=== PATIENT | female | born 1950 | race Two or more races ===

== ENCOUNTER 2021-03-28 09:41 | Inpatient (IN) ==
--- NOTE | 2021-03-28 10:32 | XRay Report ---
XR chest 1V portable HISTORY: Shortness of breath. COMPARISON: None. FINDINGS: No pneumothorax. No pleural effusions. The cardiac silhouette is mildly enlarged. There is diffuse interstitial thickening. No focal lung consolidations. There is a small to moderate hiatus he rnia. IMPRESSION: Cardiomegaly with diffuse interstitial thickening. This could be chronic or represent mild congestive change. ACT 112: Negative or not required by law. Electronically signed by: Hong Mo M.D. 03/28/2021 10:31 AM
[2021-03-28 10:34] LABS: Influenza A virus by PCR Negative (Negative); Influenza B virus by PCR Negative (Negative)
[2021-03-28] MEDS ORDERED: dexAMETHasone**PF** 10 MG/ML VIAL IV ONE (10:54)
[2021-03-28] MEDS ORDERED: ALBUT/IPRATROP 3MG/0.5MG NEB 3 ML VIAL NEB ONE (10:54)
--- NOTE | 2021-03-28 11:05 | Emergency Department Note ---
History of Present Illness General Chief complaint: Shortness of Breath/Dyspnea Stated complaint: SOB,COUGH,FEVER Time Seen by Provider: 03/28/21 10:26 History of Present Illness Patient is a 70-year-old female with past medical history significant for asthma, coronary artery disease status post angioplasty, history of CHF, atrial fibrillation chronically anticoagulated on Eliquis, GERD, anxiety, depr ession, dyslipidemia, May Thurner syndrome, among many other chronic medical problems who presents emergency department accompanied by her daughter for evaluation of shortness of breath x3 days. Patient speaks only Polish, her daughter, Lily, is her nick setter, and is acting as an swimming pool maintenance supervisor for her. They declined formal interpretation services. Patient began to feel ill on Sunday 3 days ago, with a cough, chest congestion and a headache. She was not running any fevers. They tried using multiple [id number] medications including Robitussin, Vicks, homeopathic remedies including teas and herbals, Tylenol, and began performing albuterol nebulizer treatments every 4 hours, but symptoms fail to improve. Daughter notes that overnight the patient was sitting upright in the recliner, and could not sleep due to her shortness of breath. She is fully vaccinated against Covid with 2 shots, and did receive a flu shot this year and a pneumonia vaccine. In triage, the patient was noted to be hypoxic with an O2 sat of 87% on room air, she was placed on 2 L by nasal cannula is now in 94-95%. She does not normally require oxygen at home. The patient complains mostly of shortness of breath and chest congestion. She has a cough that is productive of clear/white sputum. No chest pain. No abdominal pain, nausea, vomiting, diarrhea or urinary symptoms. Home Medications Medication Instructions Recorded Confirmed Type acetaminophen 325 mg capsule 325 mg PO Q6H PRN 04/15/19 03/28/21 History albuterol sulfate 2 mg/5 mL oral 2 mg PO TID 04/15/19 03/28/21 History syrup apixaban 5 mg tablet (Eliquis) 5 mg PO BID 04/15/19 03/28/21 History diphenhydramine HCl 25 mg capsule 25 mg PO Q6H PRN 04/15/19 03/28/21 History (Benadryl) furosemide 40 mg tablet (Lasix) 40 mg PO BID tab 12/10/19 11/22/21 History omeprazole 40 mg capsule,delayed 40 mg PO DAILY 04/15/19 03/28/21 History release sennosides 8.6 mg tablet 8.6 mg PO DAILY PRN tab 04/15/19 03/28/21 History spironolactone 25 mg tablet 25 mg PO DAILY 04/15/19 03/28/21 History (Aldactone) trazodone 50 mg tablet 100 mg PO DAILY 04/15/19 03/28/21 History diltiazem HCl 180 mg 180 mg PO DAILY 03/28/21 03/28/21 History capsule,extended release 24 hr escitalopram oxalate 10 mg tablet 10 mg PO DAILY 03/28/21 03/28/21 History fluticasone propionate 50 2 spray INTRANASAL DAILY 03/28/21 03/28/21 History mcg/actuation nasal spray,suspension linagliptin 5 mg tablet 5 mg PO DAILY 03/28/21 03/28/21 History metformin 500 mg tablet,extended 500 mg PO DAILY 03/28/21 03/28/21 History release 24 hr oxybutynin chloride 10 mg 10 mg PO DAILY 03/28/21 03/28/21 History tablet,extended release 24 hr Allergies Allergy/AdvReac Type Severity Reaction Status Date / Time aspirin Allergy Mild Verified 05/29/19 11:26 Iodinated Contrast Media AdvReac Unknown hive Verified 05/29/19 11:26 Torvastatin Allergy Mild Uncoded 05/29/19 11:26 [id number] Allergy Unknown Uncoded 05/29/19 11:26 Past Med/Surg History Medical History Chronic a-fib Chronic venous insufficiency of lower extremity Depression GERD (gastroesophageal reflux disease) H/O colon disorder H/O malignant neoplasm of colon Heart failure HTN, goal to be determined Hyperlipemia May-Thurner syndrome Obesity Persistent asthma Venous stasis dermatitis Venous stasis ulcer Surgical History H/O angioplasty H/O hernia repair H/O: hysterectomy Social History Smoking Status: Never smoker Hx Alcohol Use: No Hx Substance Use: Yes (CBD oil) Preferred Language: Czech Visual Impairment: No Limitations Hearing Ability: Normal Beliefs That Will Affect Care: None marital status: Single Current Living Situation: Family Feels Safe at Home: Yes Review of Systems A total of 10 systems reviewed and were otherwise negative Physical Exam Vital Signs Vital Signs - 24 hr 03/28/21 09:47 03/28/21 09:56 03/28/21 11:00 Temperature 37.2 C Temperature Source Temporal Artery Scan Pulse Rate 88 71 Pulse Rate [Apical] Pulse Rate from SpO2 Sensor 74 Pulse Rhythm Regular Respiratory Rate 22 22 Respiratory Effort / Characteristics Non-Labored Spontaneous Respiratory Depth Normal Respiratory Pattern Regular Blood Pressure 134/65 Blood Pressure [Right Arm] Blood Pressure Mean 88 Blood Pressure Mean [Right Arm] Pulse Oximetry 87 L 94 96 Oxygen Delivery Method Room Air Nasal Cannula Oxygen Flow Rate 2 Sepsis Recent Fever Within 48 Hours Yes Sepsis New/Unexplained Change in Mental Status No Sepsis Action Taken by Nursing No Action Required Pulse Oximetry Post Tiitration 03/28/21 11:30 03/28/21 11:51 03/28/21 12:00 Temperature Temperature Source Pulse Rate 65 70 Pulse Rate [Apical] 66 Pulse Rate from SpO2 Sensor 67 70 Pulse Rhythm Respiratory Rate 27 H 24 26 H Respiratory Effort / Characteristics Spontaneous Respiratory Depth Respiratory Pattern Blood Pressure Blood Pressure [Right Arm] Blood Pressure Mean Blood Pressure Mean [Right Arm] Pulse Oximetry 95 94 97 Oxygen Delivery Method Nasal Cannula Oxygen Flow Rate 2 Sepsis Recent Fever Within 48 Hours Sepsis New/Unexplained Change in Mental Status Sepsis Action Taken by Nursing Pulse Oximetry Post Tiitration 03/28/21 12:03 03/28/21 12:30 03/28/21 13:00 Temperature Temperature Source Pulse Rate 75 107 H Pulse Rate [Apical] 67 Pulse Rate from SpO2 Sensor 75 106 H Pulse Rhythm Respiratory Rate 27 H 32 H 28 H Respiratory Effort / Characteristics Respiratory Depth Respiratory Pattern Blood Pressure 140/70 151/67 H Blood Pressure [Right Arm] 153/75 H Blood Pressure Mean 93 95 Blood Pressure Mean [Right Arm] 101 Pulse Oximetry 96 95 94 Oxygen Delivery Method Nebulizer Nasal Cannula Oxygen Flow Rate 2 Sepsis Recent Fever Within 48 Hours Sepsis New/Unexplained Change in Mental Status Sepsis Action Taken by Nursing Pulse Oximetry Post Tiitration 2 L 03/28/21 13:30 03/28/21 14:00 03/28/21 14:30 Temperature Temperature Source Pulse Rate 85 81 82 Pulse Rate [Apical] Pulse Rate from SpO2 Sensor 88 85 81 Pulse Rhythm Respiratory Rate 25 H 23 26 H Respiratory Effort / Characteristics Respiratory Depth Respiratory Pattern Blood Pressure 133/83 147/85 H 117/62 Blood Pressure [Right Arm] Blood Pressure Mean 99 105 80 Blood Pressure Mean [Right Arm] Pulse Oximetry 93 95 94 Oxygen Delivery Method Nasal Cannula Nasal Cannula Nasal Cannula Oxygen Flow Rate 2 2 2 Sepsis Recent Fever Within 48 Hours Sepsis New/Unexplained Change in Mental Status Sepsis Action Taken by Nursing Pulse Oximetry Post Tiitration 03/28/21 14:48 Temperature Temperature Source Pulse Rate Pulse Rate [Apical] Pulse Rate from SpO2 Sensor Pulse Rhythm Respiratory Rate Respiratory Effort / Characteristics Respiratory Depth Respiratory Pattern Blood Pressure Blood Pressure [Right Arm] Blood Pressure Mean Blood Pressure Mean [Right Arm] Pulse Oximetry Oxygen Delivery Method Nasal Cannula Oxygen Flow Rate 2 Sepsis Recent Fever Within 48 Hours Sepsis New/Unexplained Change in Mental Status Sepsis Action Taken by Nursing Pulse Oximetry Post Tiitration CONSTITUTIONAL: Patient is a 70-year-old female who is awake and alert and lying semiupright on the gurney. She is on nasal cannula oxygen. EYES: Pupils equal, round, reactive to light and accommodation. EOMs intact without nystagmus. Sclera are anicteric. ENT: Tympanic membranes intact, with normal landmarks. External canals are clear. Oral and nasopharynx are clear. Mucous membranes are moist, no lesions, tongue and gums appear normal. CARDIOVASCULAR: Irregular rate and rhythm, no murmur appreciated. Peripheral pulses easy to palpable. Chronic venous stasis changes noted in the bilateral lower extremities, right markedly worse than left. Shallow ulceration noted over the medial right ankle, no overt signs of infection. RESPIRATORY: Breath sounds are harsh and diminished to auscultation throughout with wheezes and rhonchi noted with inspiration and expiration. GI: Bowel sounds are present. Abdomen is soft, nontender, nondistended. No organomegaly. No pulsatile masses. No guarding or rebound. MUSCULOSKELETAL: Full range of motion of extremities x 4 with good strength. No deformity. INTEGUMENTARY: No lesions or rash, normal skin turgor. NEUROLOGICAL: Alert, oriented, and cooperative. Cranial nerves, sensation and strength grossly intact. LYMPH: No lymphadenopathy. Course Course The patient was seen and assessed as above. Old records were reviewed. She presents the emergency department for evaluation of a few days of mild URI symptoms with increasing shortness of breath. She was noted to be hypoxic upon presentation in triage, oxygen saturation was 87% on room air. IV lock was initiated and laboratory studies were collected. She was placed on a panel monitor and EKG was performed. Laboratory studies were collected including CBC with differential, CMP, magnesium, coags, troponin, and BNP. Blood cultures x2 were collected. Influenza and COVID-19 swabs were obtained. She was placed on supplemental oxygen and responded well to this, sats were 94-95% on 2 L by nasal cannula. She was treated with a hour-long DuoNeb, and Decadron 10 mg IV. Patient history and presentation were reviewed with Dr. Pena who agreed with the ED work-up. Chest x-ray was obtained, noting cardiomegaly with diffuse interstitial thickening, no focal lung consolidations. Thickening felt to be international representative of mild congestive change. Swabs for influenza and Covid are negative. Laboratory studies note a normal white count at 7400. H&H 12.7 and 39.8, no left shift, no bandemia. Coags are within normal limits. No electrolyte abnormalities noted. BUN 12, creatinine 0.70. Transaminases are not elevated. BNP is within normal limits for age at 536. Troponin is negative x1. EKG notes a rate controlled A. fib at 68 bpm without acute ischemic changes. Patient was reassessed frequently. Patient and her daughter were updated as test results came back. She was reexamined partway through the nebulizer treatment, when she slipped directly reported that her breathing felt improved, chest exam however did not reveal any significant improvement in breath sounds. ED work-up was reviewed with Dr. Pena. Given her presentation I felt that admission/observation was appropriate. [facility] [place] [facility]. She will be add noted please refer to admission H&P and orders for further information. Cardiac monitoring: An order was placed for continuous cardiac monitoring. The monitor shows a rate controlled atrial fibrillation between 88 and 65 bpm. Administered Medications Discontinued Medications Albuterol (Albut/Ipratrop 3mg/0.5mg Neb 3 Ml Vial) 12 ml NEB ONE ONE Stop: 03/28/21 10:55 Last Admin: 03/28/21 11:48 Dose: 12 ml Documented by: [id number] Dexamethasone Sodium Phosphate (DexamethasonePf 10 Mg/Ml Vial) 10 mg IV NOW ONE Stop: 03/28/21 10:55 Last Admin: 03/28/21 12:14 Dose: 10 mg Documented by: [id number] Medical Decision Making Differential Diagnosis Differential diagnoses entertained included asthma/COPD exacerbation, URI, bronchitis, pneumonia, pneumothorax, CHF exacerbation, cardiac pathology, pulmonary embolism, among others. Medical Records Attestation: I reviewed the patient's medical records. Home Medications Current Medication List: was personally reviewed by me Laboratory Data Attestation: I reviewed the patient's lab results. Result diagrams: 03/28/21 09:51 03/28/21 09:51 Lab Results 03/28/21 03/28/21 03/28/21 Range/Units 09:51 09:51 09:51 WBC 7.40 (4.8-10.8) K/uL RBC 4.04 L (4.2-5.4) M/uL Hgb 12.7 (12.0-16.0) g/dL Hct 39.8 (37-47) % MCV 98.5 (80-100) fL MCH 31.4 (25-34) pg MCHC 31.9 L (32-36) g/dL RDW Std Deviation 52.8 H (36.4-46.3) fL RDW Coeff of Bernardo 14.6 H (11.5-14.5) % Plt Count 124 L (130-400) K/uL MPV 10.7 H (7.4-10.4) fL Immature Gran % (Auto) 0.1 % Neut % (Auto) 71.3 % Lymph % (Auto) 15.3 % Custer % (Auto) 10.8 % Eos % (Auto) 2.4 % Baso % (Auto) 0.1 % Neut # (Auto) 5.27 (1.4-6.5) K/uL Lymph # (Auto) 1.13 L (1.2-3.4) K/uL Custer # (Auto) 0.80 H (0.11-0.59) K/uL Eos # (Auto) 0.18 (0-0.5) K/uL Baso # (Auto) 0.01 (0-0.2) K/uL Immature Gran # (Auto) 0.01 (0.00-0.02) K/uL PT 10.3 (9.0-12.0) Seconds INR 1.0 (0.9-1.1) APTT 26.5 (21.0-31.0) Seconds PTT Ratio 1.0 Sodium 135 L (136-145) mmol/L Potassium 4.3 (3.5-5.1) mmol/L Chloride 98 (98-107) mmol/L Carbon Dioxide 30 (21-32) mmol/L Anion Gap 7.0 (3-11) BUN 12 (7-18) mg/dl Creatinine 0.70 (0.6-1.2) mg/dl Est Cr Clr Drug Dosing Not Reportable Est GFR ( Amer) 100.3 ml/min Est GFR (Non-Af Amer) 86.6 ml/min BUN/Creatinine Ratio 16.7 (10-20) Glucose 138 H (70-99) mg/dl Calcium 8.3 L (8.5-10.1) mg/dl Magnesium 2.6 H (1.8-2.4) mg/dl Total Bilirubin 0.4 (0.2-1) mg/dl AST 19 (15-37) U/L ALT 19 (12-78) U/L Alkaline Phosphatase 104 (45-117) U/L Troponin I < 0.015 (0-0.045) ng/ml NT-Pro-B Natriuret Pep (0-900) pg/ml Total Protein 8.6 H (6.4-8.2) gm/dl Albumin 3.2 L (3.4-5.0) gm/dl Globulin 5.4 H (2.5-4.0) gm/dl Albumin/Globulin Ratio 0.6 L (0.9-2) SARS-CoV-2 (PCR) (Negative) Influ A Molecular Assay (Negative) Influ B Molecular Assay (Negative) 03/28/21 03/28/21 03/28/21 Range/Units 09:51 09:54 09:54 WBC (4.8-10.8) K/uL RBC (4.2-5.4) M/uL Hgb (12.0-16.0) g/dL Hct (37-47) % MCV (80-100) fL MCH (25-34) pg MCHC (32-36) g/dL RDW Std Deviation (36.4-46.3) fL RDW Coeff of Bernardo (11.5-14.5) % Plt Count (130-400) K/uL MPV (7.4-10.4) fL Immature Gran % (Auto) % Neut % (Auto) % Lymph % (Auto) % Custer % (Auto) % Eos % (Auto) % Baso % (Auto) % Neut # (Auto) (1.4-6.5) K/uL Lymph # (Auto) (1.2-3.4) K/uL Custer # (Auto) (0.11-0.59) K/uL Eos # (Auto) (0-0.5) K/uL Baso # (Auto) (0-0.2) K/uL Immature Gran # (Auto) (0.00-0.02) K/uL PT (9.0-12.0) Seconds INR (0.9-1.1) APTT (21.0-31.0) Seconds PTT Ratio Sodium (136-145) mmol/L Potassium (3.5-5.1) mmol/L Chloride (98-107) mmol/L Carbon Dioxide (21-32) mmol/L Anion Gap (3-11) BUN (7-18) mg/dl Creatinine (0.6-1.2) mg/dl Est Cr Clr Drug Dosing Est GFR ( Amer) ml/min Est GFR (Non-Af Amer) ml/min BUN/Creatinine Ratio (10-20) Glucose (70-99) mg/dl Calcium (8.5-10.1) mg/dl Magnesium (1.8-2.4) mg/dl Total Bilirubin (0.2-1) mg/dl AST (15-37) U/L ALT (12-78) U/L Alkaline Phosphatase (45-117) U/L Troponin I (0-0.045) ng/ml NT-Pro-B Natriuret Pep 536 (0-900) pg/ml Total Protein (6.4-8.2) gm/dl Albumin (3.4-5.0) gm/dl Globulin (2.5-4.0) gm/dl Albumin/Globulin Ratio (0.9-2) SARS-CoV-2 (PCR) NEGATIVE (Negative) Influ A Molecular Assay Negative (Negative) Influ B Molecular Assay Negative (Negative) Imaging Data Attestation: I personally reviewed and interpreted this imaging study as follows: Radiologist's Impression: Chest X-Ray 03/28/21 09:51 XR chest 1V portable HISTORY: Shortness of breath. COMPARISON: None. FINDINGS: No pneumothorax. No pleural effusions. The cardiac silhouette is mi ldly enlarged. There is diffuse interstitial thickening. No focal lung consolidations. There is a small to moderate hiatus hernia. IMPRESSION: Cardiomegaly with diffuse interstitial thickening. This could be chronic or represent mild congestive change. ACT 112: Negative or not required by law. Electronically signed by: Hong Mo M.D. 03/28/2021 10:31 AM ECG Data Attestation: I personally reviewed and interpreted this ECG as follows: Indication: + SOB/dyspnea Rate (beats per minute): 68 Rhythm: + atrial fibrillation ECG Intervals/blocks: + Right Bundle branch block ECG Cosmos: + Normal ECG ST segments: + Normal ST segments Comparison ECG Date: no prior available MDM Narrative See ED Course. Impression & Plan Asthma exacerbation, Hypoxia Discharge Plan Visit Data Chief Complaint: Shortness of Breath/Dyspnea Stated Complaint: SOB,COUGH,FEVER ED Provider: Darius Pena ED Midlevel Provider: Yuly Maki Discharge Problem: Asthma exacerbation, Hypoxia Patient Disposition: Admitted As Inpatient Discharge Instructions Interventions: ED Discharge Assessment Last Done: 03/28/21 14:48 Forms Stand Alone Forms: My [facility] Prescriptions Prescriptions: No Action acetaminophen 325 mg capsule 325 mg PO Q6H PRN (Reason: Pain) RF: 0 albuterol sulfate 2 mg/5 mL syrup 2 mg PO TID RF: 0 diphenhydramine HCl [Benadryl] 25 mg capsule 25 mg PO Q6H PRN (Reason: Itching) RF: 0 Eliquis 5 mg tablet 5 mg PO BID RF: 0 furosemide [Lasix] 40 mg tablet 40 mg PO BID RF: 0 omeprazole 40 mg capsule,delayed release(DR/EC) 40 mg PO DAILY RF: 0 sennosides 8.6 mg tablet 8.6 mg PO DAILY PRN (Reason: Constipation) RF: 0 spironolactone [Aldactone] 25 mg tablet 25 mg PO DAILY RF: 0 trazodone 50 mg tablet 100 mg PO DAILY RF: 0 oxybutynin chloride 10 mg tablet extended release 24hr 10 mg PO DAILY RF: 0 diltiazem HCl 180 mg capsule,extended release 24hr 180 mg PO DAILY RF: 0 fluticasone propionate 50 mcg/actuation spray,suspension 2 spray INTRANASAL DAILY RF: 0 metformin 500 mg tablet extended release 24 hr 500 mg PO DAILY RF: 0 escitalopram oxalate 10 mg tablet 10 mg PO DAILY RF: 0 linagliptin 5 mg Tablet 5 mg PO DAILY RF: 0 Referrals Referrals: PCP,NO [Primary Care Provider] -
[2021-03-28 11:42] LABS: Basophils # (auto) 0.01 K/uL (0-0.2); Basophils % (auto) 0.1 %; Eosinophils # (auto) 0.18 K/uL (0-0.5); Eosinophils % (auto) 2.4 %; Hematocrit (blood only) 39.8 % (37-47); Hemoglobin 12.7 g/dL (12.0-16.0); Immature Granulocytes # (auto) 0.01 K/uL (0.00-0.02); Immature Granulocytes % (auto) 0.1 %; Lymphocytes # (auto) 1.13 K/uL (1.2-3.4); Lymphocytes % (auto) 15.3 %; Mean Corpuscular Hemoglobin 31.4 pg (25-34); Mean Corpuscular Hgb Conc 31.9 g/dL (32-36); Mean Corpuscular Volume 98.5 fL (80-100); Mean Platelet Volume 10.7 fL (7.4-10.4); Monocytes % (auto) 10.8 %; Neutrophils # (auto) 5.27 K/uL (1.4-6.5); Neutrophils % (auto) 71.3 %; Platelet Count 124 K/uL (130-400); RDW Coefficient of Variation 14.6 % (11.5-14.5); RDW Standard Deviation 52.8 fL (36.4-46.3); Red Blood Count 4.04 M/uL (4.2-5.4)
[2021-03-28 11:52] LABS: Partial Thromboplastin Time 26.5 Seconds (21.0-31.0); Prothrombin Time 10.3 Seconds (9.0-12.0)
[2021-03-28 11:59] LABS: Alanine Aminotransferase 19 U/L (12-78); Albumin Level 3.2 gm/dl (3.4-5.0); Aspartate Aminotransferase 19 U/L (15-37); BUN Creatinine Ratio 16.7 (10-20); Blood Urea Nitrogen 12 mg/dl (7-18); Calcium 8.3 mg/dl (8.5-10.1); Carbon Dioxide 30 mmol/L (21-32); Chloride 98 mmol/L (98-107); Est GFR (African American) 100.3 ml/min; Est GFR (Non-African American) 86.6 ml/min; Glucose 138 mg/dl (70-99); Magnesium 2.6 mg/dl (1.8-2.4); Potassium 4.3 mmol/L (3.5-5.1); Sodium 135 mmol/L (136-145)
[2021-03-28 12:03] LABS: Albumin Globulin Ratio 0.6 (0.9-2); Alkaline Phosphatase 104 U/L (45-117); Bilirubin,Total 0.4 mg/dl (0.2-1); Globulin 5.4 gm/dl (2.5-4.0); Total Protein 8.6 gm/dl (6.4-8.2); Troponin I < 0.015 ng/ml (0-0.045)
--- NOTE | 2021-03-28 13:40 | History & Physical Report ---
Date of Service March 28, 2021 Assessment & Plan (1) Persistent asthma: Plan: - [facility] - Acute on chronic asthma exacerbation likely in the setting of viral illness. - Neg COVID. (completed vaccination series). Neg Flu. - Supportive therapy, Mucinex, duoneb Q4H and Q2H prn, O2 as needed, wean as tolerated - Given 10 mg IV dexamethasone in the ER, albuterol 1 hour-long nebulizer treatment - seems improved but still with diffuse wheeze and belly breathing. - IV solumedrol 40 mg TID, add flovent and atrovent inhalers - Pt daughter agreeable to trial on bipap if no improvement and willing to be intubated if needed. - Pt has previously followed with pulm but not for many years, - previously resided in [facility] and has been living with daughter for ~ 3 years now. - Does not wear O2 at baseline (2) Chronic a-fib: Plan: -Anticoagulated on Eliquis 5 mg twice daily, rate controlled on diltiazem (3) HTN, goal to be determined: Plan: -Continue spironolactone, Lasix 40 mg twice daily (4) Hyperlipemia: Plan: -Patient does not appear to be on statin therapy (5) GERD (gastroesophageal reflux disease): Plan: -Continue omeprazole (6) Chronic venous insufficiency of lower extremity: Plan: -PVD, chronic venous stasis changes, right chronic ankle wound, will consult wound nurse to monitor while inpatient -Continue follow-up with wound as outpatient (7) DM II (diabetes mellitus, type II), controlled: Plan: -ISS with Accu-Cheks ACHS -Holding linagliptin and Metformin (8) Obesity: Plan: -History of such, diet and exercise to be encouraged throughout hospital stay DVT ppx: - teds, scds, Eliquis twice daily CODE: Full code Dispo: From home, likely to remain in the hospital x 1-2 days History of Present Illness Primary Care Provider: NO PCP This is a 70 yo F with PMhx of chronic A. 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 Since then she has had increased shortness of breath with minimal exertion as well as has been sitting upright in recliner during sleep. She was requiring oxygen here in the ER today however does not routinely wear any O2 at baseline. She was hypoxic with sats at 87% on room air which improved with being placed on 2 L. Negative Covid and negative influenza swabs on admission. Patient is very fatigued and falls asleep easily during our exam. Her daughter, Lily is present at bedside and supports the majority of the history as the patient is primarily [place]- speaking, and daughter acts as a vice president and portfolio manager for her. They denied translation services during my visit. They have been utilizing [id number] treatments including fluticasone propionate nasal spray, Robitussin cough syrup, Vicks vapor rub, elderberry juice. She has a nebulizer at home which she has been utilizing several times per day. She does not run a humidifier in her bedroom at home. Here in the ER she received a 1 hour-long nebulizer treatment as well as a dose of Decadron IV. CXR is concerning for possible interstitial edema however her lungs are diffusely wheezy. Allergies Allergy/AdvReac Type Severity Reaction Status Date / Time aspirin Allergy Mild Verified 05/29/19 11:26 Iodinated Contrast Media AdvReac Unknown hive Verified 05/29/19 11:26 Torvastatin Allergy Mild Uncoded 05/29/19 11:26 [id number] Allergy Unknown Uncoded 05/29/19 11:26 Home Medications Medication Instructions Recorded Confirmed Type acetaminophen 325 mg capsule 325 mg PO Q6H PRN 04/15/19 03/28/21 History albuterol sulfate 2 mg/5 mL oral 2 mg PO TID 04/15/19 03/28/21 History syrup apixaban 5 mg tablet (Eliquis) 5 mg PO BID 04/15/19 03/28/21 History diphenhydramine HCl 25 mg capsule 25 mg PO Q6H PRN 04/15/19 03/28/21 History (Benadryl) furosemide 40 mg tablet (Lasix) 40 mg PO BID tab 04/15/19 03/28/21 History omeprazole 40 mg capsule,delayed 40 mg PO DAILY 04/15/19 03/28/21 History release sennosides 8.6 mg tablet 8.6 mg PO DAILY PRN tab 04/15/19 03/28/21 History spironolactone 25 mg tablet 25 mg PO DAILY 04/15/19 03/28/21 History (Aldactone) trazodone 50 mg tablet 100 mg PO DAILY 04/15/19 03/28/21 History diltiazem HCl 180 mg 180 mg PO DAILY 03/28/21 03/28/21 History capsule,extended release 24 hr escitalopram oxalate 10 mg tablet 10 mg PO DAILY 03/28/21 03/28/21 History fluticasone propionate 50 2 spray INTRANASAL DAILY 03/28/21 03/28/21 History mcg/actuation nasal spray,suspension linagliptin 5 mg tablet 5 mg PO DAILY 03/28/21 03/28/21 History metformin 500 mg tablet,extended 500 mg PO DAILY 03/28/21 03/28/21 History release 24 hr oxybutynin chloride 10 mg 10 mg PO DAILY 03/28/21 03/28/21 History tablet,extended release 24 hr Past Med/Surg History Medical History Chronic a-fib Chronic venous insufficiency of lower extremity Depression GERD (gastroesophageal reflux disease) H/O colon disorder H/O malignant neoplasm of colon Heart failure HTN, goal to be determined Hyperlipemia May-Thurner syndrome Obesity Persistent asthma Venous stasis dermatitis Venous stasis ulcer Surgical History H/O angioplasty H/O hernia repair H/O: hysterectomy Social History Smoking Status: Never smoker Hx Alcohol Use: No Hx Substance Use: No Preferred Language: [place] Visual Impairment: No Limitations Hearing Ability: Normal Fitting Supervisor Required: Yes Beliefs That Will Affect Care: None marital status: Single Current Living Situation: Family Other Information That Helps Us Care for You: No Feels Safe at Home: Yes Safety Concerns: Feels Safe At This Time Assistive Devices: None Review of Systems Review of Systems: Constitutional: No fever, sweats or chills Eyes: No diplopia, no worsening or blurred vision ENT: normal hearing, no trouble swallowing Respiratory: + Cough, + sputum, clear green-gra, + dyspnea at rest and on exertion Cardiovascular: No chest pain, tightness or palpitations Abdomen: No pain, nausea, vomiting, diarrhea or constipation Musculoskeletal: No joint pain, calf pain, + chronic swelling BLE Neurologic: No weakness, numbness/tingling, or balance problems Psychiatric: No anxiety or depression Skin: No rash or itch, chronic nonhealing wound on right ankle Physical Exam Physical Exam: General: awake, alert, no apparent distress, fatigued, [place]- speaking Head: Normocephalic, atraumatic ENT: PERRL, EOMI, no pharyngeal exudate, mucous membranes dry Chest: Diffuse loud coarse wheezing throughout, on 2 LPM NC, no rhonchi Cardiac: Regular rate and rhythm, no murmur, no JVD, normal peripheral pulses, good capillary refill Abdominal: NABS x 4 quadrants, soft, nondistended, nontender to palpation, no rebound or guarding Extremities: Normal inspection, 1+ peripheral edema BLE, chronic venous stasis changes, small right ankle wound healing, calfs nontender to palpation Psych: Normal mood and affect Neuro: AAO x 3, strength intact bilaterally and rated 5/5, no motor deficits, speech is clear, no peripheral sensory deficits Results & Data Results & Data ([facility]) Vital Signs (Past 12 Hours) Vital Signs Temp Pulse Pulse Resp BP BP Pulse Ox 03/28/21 12:30 75 32 H 140/70 95 03/28/21 12:03 67 27 H 153/75 H 96 03/28/21 12:00 70 26 H 97 03/28/21 11:51 66 24 94 03/28/21 11:30 65 27 H 95 03/28/21 11:00 71 22 96 03/28/21 09:56 94 03/28/21 09:47 37.2 C 88 22 134/65 87 L Diagnostic Findings Chest X-Ray 03/28/21 09:51 XR chest 1V portable HISTORY: Shortness of breath. COMPARISON: None. FINDINGS: No pneumothorax. No pleural effusions. The cardiac silhouette is mildly enlarged. There is diffuse interstitial thickening. No focal lung consolidations. There is a small to moderate hiatus hernia. IMPRESSION: Cardiomegaly with diffuse interstitial thickening. This could be chronic or represent mild congestive change. ACT 112: Negative or not required by law. Electronically signed by: Hong Mo M.D. 03/28/2021 10:31 AM ECG Additional Comments: 28-MAR-2021 11:09:42 [facility]-EDSTAT ROUTINE RETRIEVAL Atrial fibrillation Right bundle branch block Abnormal ECG No previous ECGs available 25mm/s 10mm/mV 150Hz 9.0.9 12SL 241 RAPHAEL: 16 Referred by: ED Unconfirmed Vent. rate 68 BPM MN interval * ms QRS duration 132 ms QT/QTc 442/469 ms Code Status & VTE Plan Code Status Full code- discussed with pt and daughter at bedside Supervising Physician Co-Signing Physician Notes Attending addendum: The patient was seen and examined in medical floor in presence of the daughter She was admitted with acute exacerbation of asthma likely viral Has been feeling better already On examination Hemodynamically stable with blood pressure on the upper side Minimal wheezing at rest and has been saturating on room air Chest-decreased breath sounds bilaterally with wheezing and minimal crackles at the bases Abdomen-benign [id number] 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
[2021-03-28] MEDS ORDERED: GLUCAGON FOR INJ 1 MG VIAL SQ PRN (15:22)
[2021-03-28] MEDS ORDERED: ONDANSETRON INJ 2 MG/ML 2 ML VIAL IV PRN (15:22)
[2021-03-28] MEDS ORDERED: DEXTROSE 50% 50 ML SYRINGE IV PRN (15:22)
[2021-03-28] MEDS ORDERED: CARBOHYDRATES FOR HYPOGLYCEMIA PO PRN (15:22)
[2021-03-28] MEDS ORDERED: GLUCOSE 40% GEL 15 GM TUBE PO PRN (15:22)
[2021-03-28] MEDS ORDERED: ACETAMINOPHEN 325 MG TAB PO PRN (15:22)
[2021-03-28] MEDS ORDERED: GLUCOSE 10 TABS/TUBE PO PRN (15:22)
[2021-03-28] MEDS ORDERED: SENNA 8.6 MG TAB PO PRN (15:22)
[2021-03-28] MEDS: ALBUT/IPRATROP 3MG/0.5MG NEB 3 ML VIAL NEB SCH ×2 (16:26→20:20)
[2021-03-28] MEDS: methylPREDNISolone 40 MG in SYRINGE 0 ML IV SCH (16:46)
[2021-03-28] MEDS: INSULIN ASPART 100 UNITS/ML 3 ML PEN SC SCH ×2 (18:01→20:56)
[2021-03-28] MEDS: IPRATROPIUM BROMIDE HFA INHALER INH SCH (18:13)
[2021-03-28] MEDS: guaiFENesin 600 MG TABCR PO SCH (19:27)
[2021-03-28] MEDS: FUROSEMIDE 40 MG TAB PO SCH (19:27)
[2021-03-28] MEDS: APIXABAN 5 MG TABLET PO SCH (19:27)
[2021-03-29] MEDS: ALBUT/IPRATROP 3MG/0.5MG NEB 3 ML VIAL NEB SCH ×7 (00:10→23:29)
[2021-03-29] MEDS: methylPREDNISolone 40 MG in SYRINGE 0 ML IV SCH ×3 (01:10→16:41)
[2021-03-29 07:18] LABS: Hemoglobin 12.8 g/dL (12.0-16.0); Mean Corpuscular Hemoglobin 32.1 pg (25-34); Mean Corpuscular Volume 100.3 fL (80-100); Mean Platelet Volume 11.5 fL (7.4-10.4); Platelet Count 113 K/uL (130-400); RDW Coefficient of Variation 14.5 % (11.5-14.5); RDW Standard Deviation 53.3 fL (36.4-46.3); Red Blood Count 3.99 M/uL (4.2-5.4); White Blood Count 5.64 K/uL (4.8-10.8)
[2021-03-29 07:51] LABS: Albumin Level 3.1 gm/dl (3.4-5.0); BUN Creatinine Ratio 21.1 (10-20); Calcium 8.9 mg/dl (8.5-10.1); Creatinine Clr Calc Pharmacy 67.6 ml/min; Est GFR (African American) 85.4 ml/min; Est GFR (Non-African American) 73.7 ml/min; Potassium 4.7 mmol/L (3.5-5.1)
[2021-03-29 07:54] LABS: Albumin Globulin Ratio 0.6 (0.9-2); Bilirubin,Total 0.5 mg/dl (0.2-1); Globulin 5.4 gm/dl (2.5-4.0); Total Protein 8.5 gm/dl (6.4-8.2)
[2021-03-29] MEDS: ESCITALOPRAM OXALATE 10 MG TAB PO SCH (08:49)
[2021-03-29] MEDS: dilTIAZem HCL 180 MG CAPCR PO SCH (08:49)
[2021-03-29] MEDS: APIXABAN 5 MG TABLET PO SCH ×2 (08:49→20:15)
[2021-03-29] MEDS: FLUTICASONE PROPIONATE NA SPR 16 GM BTL SCH (08:50)
[2021-03-29] MEDS: FLUTICASONE FUROATE 200MCG 14 PUFFS/INHALER INH SCH (08:50)
[2021-03-29] MEDS: FUROSEMIDE 40 MG TAB PO SCH ×2 (08:51→20:15)
[2021-03-29] MEDS: PANTOprazole 40 MG TAB PO SCH (08:52)
[2021-03-29] MEDS: OXYBUTYNIN CHLORIDE XL 5 MG TABCR PO SCH (08:52)
[2021-03-29] MEDS: guaiFENesin 600 MG TABCR PO SCH ×2 (08:52→20:15)
[2021-03-29] MEDS: traZODone HCL 100 MG TAB PO SCH (08:54)
[2021-03-29] MEDS ORDERED: metFORMIN HCL ER 500 MG TABCR PO SCH (09:00)
[2021-03-29] MEDS ORDERED: LINAGLIPTIN 5 MG PO SCH (09:00)
[2021-03-29] MEDS: INSULIN ASPART 100 UNITS/ML 3 ML PEN SC SCH ×4 (09:02→20:28)
[2021-03-29 09:39] LABS: Estimated Average Glucose 166 mg/dl; Hemoglobin A1C 7.4 % (4.5-5.6)
[2021-03-29] MEDS: IPRATROPIUM BROMIDE HFA INHALER INH SCH (09:52)
[2021-03-29] MEDS: SPIRONOLACTONE 25 MG TAB PO SCH (10:50)
--- NOTE | 2021-03-29 16:23 | Hospitalist Progress Note ---
Date of Service March 29, 2021 Assessment & Plan (1) Persistent asthma: Plan: - Acute on chronic asthma exacerbation likely in the setting of viral illness. - Neg COVID. (completed vaccination series). Neg Flu. - Supportive therapy, Mucinex, duoneb Q4H and Q2H prn, O2 as needed, wean as tolerated - Given 10 mg IV dexamethasone in the ER, albuterol 1 hour-long nebulizer treatment - seems improved but still with diffuse wheeze and belly breathing. - IV solumedrol 40 mg TID, add flovent and atrovent inhalers - Pt daughter agreeable to trial on bipap if no improvement and willing to be intubated if needed. - Pt has previously followed with pulm but not for many years, - previously resided in [facility] and has been living with daughter for ~ 3 years now. - Does not wear O2 at baseline -Clinically better but has been requiring up to 4 L of oxygen to maintain saturation -She has been ambulating in the hallway with minimal excess shortness of breath (2) Chronic a-fib: Plan: -Anticoagulated on Eliquis 5 mg twice daily, rate controlled on diltiazem -Rate is controlled (3) HTN, goal to be determined: Plan: -Continue spironolactone, Lasix 40 mg twice daily (4) Hyperlipemia: Plan: -Patient does not appear to be on statin therapy (5) GERD (gastroesophageal reflux disease): Plan: -Continue omeprazole (6) Chronic venous insufficiency of lower extremity: Plan: -PVD, chronic venous stasis changes, right chronic ankle wound, will consult wound nurse to monitor while inpatient -Continue follow-up with wound as outpatient (7) DM II (diabetes mellitus, type II), controlled: Plan: -ISS with Accu-Cheks ACHS -Holding linagliptin and Metformin (8) Obesity: Plan: -History of such, diet and exercise to be encouraged throughout hospital stay DVT ppx: - teds, scds, Eliquis twice daily CODE: Full code Dispo: From home, likely to remain in the hospital x 1-2 days Admission and Anticipated Discharge Date Admission Date: March 28, 2021 Subjective 03/29/2021 The patient was seen and examined in medical floor She has been feeling much better today and has been moving around the hallway with minimal shortness of breath She has been requiring up to 4 L of oxygen to maintain saturation Review of Systems Review of Systems: All systems reviewed and are unremarkable except as noted below Respiratory: Shortness of breath with minimal wheezing Physical Exam Physical Exam: Sitting on a chair with minimal shortness of breath Constitutional: well developed, well nourished, + ill appearing and + obese Eyes: PERRL, conjunctivae normal, anicteric sclerae ENMT: external ear and nose normal, oropharynx normal Neck: trachea midline, no thyromegaly Respiratory: + respiratory distress (Mild respiratory distress) and + cough Auscultation: + diminished lung sounds and + wheezes Cardiovascular: Rate/Rhythm: regular rate and regular rhythm; not tachycardic Heart Sounds: normal S1 and normal S2; no murmur Extremities: + edema (Trace edema bilaterally) Gastrointestinal (Abdomen): Inspection/Auscultation: normal bowel sounds; abdomen not distended Percussion/Palpation: abdomen soft; abdomen nontender Musculoskeletal: No acute arthritis in any joint Neurologic: Alert, awake and oriented x3. No focal sensory or motor deficit appreciated Psychiatric: A+Ox3, euthymic affect Lymphatic: no cervical or axillary lymphadenopathy Results & Data Results & Data ([facility]) Vital Signs (Past 12 Hours) Vital Signs Temp Pulse Resp BP Pulse Ox 03/29/21 15:30 36.9 C 73 16 125/62 96 03/29/21 15:05 20 94 03/29/21 07:44 83 20 95 03/29/21 07:27 36.6 C 79 16 123/68 96 03/29/21 06:02 89 20 92 Laboratory Results Short CBC 03/29/21 Range/Units 06:10 WBC 5.64 (4.8-10.8) K/uL Hgb 12.8 (12.0-16.0) g/dL Hct 40.0 (37-47) % Plt Count 113 L (130-400) K/uL BMP 03/29/21 06:10 Sodium 134 L Potassium 4.7 Chloride 100 Carbon Dioxide 32 BUN 17 Creatinine 0.80 Glucose 212 H Calcium 8.9 Liver Function 03/29/21 Range/Units 06:10 Total Bilirubin 0.5 (0.2-1) mg/dl AST 21 (15-37) U/L ALT 23 (12-78) U/L Alkaline Phosphatase 104 (45-117) U/L Albumin 3.1 L (3.4-5.0) gm/dl Medications Administered Current Inpatient Medications Acetaminophen (Acetaminophen 325 Mg Tab) 650 mg PO Q4H PRN PRN Reason: Moderate Pain Stop: 04/27/21 15:21 Albuterol (Albut/Ipratrop 3mg/0.5mg Neb 3 Ml Vial) 3 ml NEB Q4R [facility]ABET Stop: 04/27/21 14:59 Last Admin: 03/29/21 15:04 Dose: 3 ml Documented by: Apixaban (Apixaban 5 Mg Tablet) 5 mg PO BID EL[facility]ABET Stop: 04/27/21 20:59 Last Admin: 03/29/21 08:49 Dose: 5 mg Documented by: Dextrose (Dextrose 50% 50 Ml Syringe) 25 - 50 ml IV UD PRN; Protocol PRN Reason: Hypoglycemia Protocol Stop: 04/27/21 15:21 Diltiazem HCl (Diltiazem Hcl 180 Mg Capcr) 180 mg PO DAILY EL[facility]ABET Stop: 04/28/21 08:59 Last Admin: 03/29/21 08:49 Dose: 180 mg Documented by: Escitalopram Oxalate (Escitalopram Oxalate 10 Mg Tab) 10 mg PO DAILY [facility]ABET Stop: 04/28/21 08:59 Last Admin: 03/29/21 08:49 Dose: 10 mg Documented by: Fluticasone Furoate (Fluticasone Furoate 200mcg 14 Puffs/Inhaler) 1 puffs INH DAILY ELIZABET; Protocol Stop: 04/28/21 08:59 Last Admin: 03/29/21 08:50 Dose: 1 puffs Documented by: Fluticasone Propionate (Fluticasone Propionate Na Spr 16 Gm Btl) 2 sprays NA DAILY [facility]ABET Stop: 04/28/21 08:59 Last Admin: 03/29/21 08:50 Dose: 2 sprays Documented by: Furosemide (Furosemide 40 Mg Tab) 40 mg PO BID [facility]ET Stop: 04/27/21 20:59 Last Admin: 03/29/21 08:51 Dose: 40 mg Documented by: Glucagon (Glucagon For Inj 1 Mg Vial) 1 mg SQ UD PRN; Protocol PRN Reason: Hypoglycemia Protocol Stop: 04/27/21 15:21 Glucose (Glucose 10 Tabs/Tube) 4 - 8 tabs PO UD PRN; Protocol PRN Reason: Hypoglycemia Protocol Stop: 04/27/21 15:21 Glucose (Glucose 40% Gel 15 Gm Tube) 15 - 30 gm PO UD PRN; Protocol PRN Reason: Hypoglycemia Protocol Stop: 04/27/21 15:21 Guaifenesin (Guaifenesin 600 Mg Tabcr) 1,200 mg PO Q12 [facility]ET Stop: 04/27/21 20:59 Last Admin: 03/29/21 08:52 Dose: 1,200 mg Documented by: Methylprednisolone 40 mg/ (Syringe) 0.64 mls @ 1.5 mls/min IV Q8H [facility]ABET Stop: 04/27/21 16:59 Last Admin: 03/29/21 08:52 Dose: 1.5 mls/min Documented by: Insulin Aspart (Insulin Aspart 100 Units/Ml 3 Ml Pen) 0 units SC ACHS [facility] Stop: 04/27/21 16:29 Last Admin: 03/29/21 13:04 Dose: 6 units Documented by: Miscellaneous (Carbohydrates For Hypoglycemia ) 15 - 30 gm PO UD PRN PRN Reason: Hypoglycemia Protocol Stop: 04/27/21 15:21 Ondansetron HCl (Ondansetron Inj 2 Mg/Ml 2 Ml Vial) 4 mg IV Q4H PRN PRN Reason: Nausea And Vomiting Stop: 04/27/21 15:21 Oxybutynin Chloride (Oxybutynin Chloride Xl 5 Mg Tabcr) 10 mg PO DAILY [facility] Stop: 04/28/21 08:59 Last Admin: 03/29/21 08:52 Dose: 10 mg Documented by: Pantoprazole Sodium (Pantoprazole 40 Mg Tab) 40 mg PO DAILY [facility]; Protocol Stop: 04/28/21 08:59 Last Admin: 03/29/21 08:52 Dose: 40 mg Documented by: Sennosides (Senna 8.6 Mg Tab) 8.6 mg PO DAILY PRN PRN Reason: Constipation Stop: 04/27/21 15:21 Spironolactone (Spironolactone 25 Mg Tab) 25 mg PO DAILY [facility] Stop: 04/28/21 08:59 Last Admin: 03/29/21 10:50 Dose: 25 mg Documented by: Trazodone HCl (Trazodone Hcl 100 Mg Tab) 100 mg PO DAILY [facility] Stop: 04/28/21 08:59 Last Admin: 03/29/21 08:54 Dose: Not Given Documented by:
[2021-03-30] MEDS: methylPREDNISolone 40 MG in SYRINGE 0 ML IV SCH ×3 (01:14→17:36)
[2021-03-30] MEDS: ALBUT/IPRATROP 3MG/0.5MG NEB 3 ML VIAL NEB SCH ×4 (02:40→15:29)
[2021-03-30 06:20] LABS: Hematocrit (blood only) 38.5 % (37-47); Hemoglobin 12.1 g/dL (12.0-16.0); Mean Corpuscular Hemoglobin 31.3 pg (25-34); Mean Corpuscular Hgb Conc 31.4 g/dL (32-36); Mean Corpuscular Volume 99.7 fL (80-100); Mean Platelet Volume 10.8 fL (7.4-10.4); Platelet Count 147 K/uL (130-400); RDW Coefficient of Variation 14.5 % (11.5-14.5); RDW Standard Deviation 52.7 fL (36.4-46.3); Red Blood Count 3.86 M/uL (4.2-5.4); White Blood Count 10.92 K/uL (4.8-10.8)
--- NOTE | 2021-03-30 06:27 | Electrocardiogram Report ---
Test Reason : Blood Pressure : / mmHG Vent. Rate : 068 BPM Atrial Rate : 053 BPM P-R Int : 000 ms QRS Dur : 132 ms QT Int : 442 ms P-R-T Axes : 000 -23 007 degrees QTc Int : 469 ms Atrial fibrillation Right bundle branch block Abnormal ECG No previous ECGs available Confirmed by Jony Ferrer ([id number]) on 03/30/2021 6:26:38 AM Referred By: ED Confirmed By:Jony Ferrer
[2021-03-30 06:55] LABS: Calcium 8.4 mg/dl (8.5-10.1); Creatinine Clr Calc Pharmacy 57.5 ml/min; Est GFR (African American) 70.2 ml/min; Est GFR (Non-African American) 60.6 ml/min; Potassium 5.1 mmol/L (3.5-5.1)
[2021-03-30 06:57] LABS: Albumin Globulin Ratio 0.6 (0.9-2); Bilirubin,Total 0.5 mg/dl (0.2-1)
[2021-03-30] MEDS: APIXABAN 5 MG TABLET PO SCH (07:57)
[2021-03-30] MEDS: FUROSEMIDE 40 MG TAB PO SCH (07:57)
[2021-03-30] MEDS: ESCITALOPRAM OXALATE 10 MG TAB PO SCH (07:57)
[2021-03-30] MEDS: SPIRONOLACTONE 25 MG TAB PO SCH (07:58)
[2021-03-30] MEDS: FLUTICASONE FUROATE 200MCG 14 PUFFS/INHALER INH SCH (07:58)
[2021-03-30] MEDS: dilTIAZem HCL 180 MG CAPCR PO SCH (07:58)
[2021-03-30] MEDS: guaiFENesin 600 MG TABCR PO SCH (07:58)
[2021-03-30] MEDS: traZODone HCL 100 MG TAB PO SCH (07:58)
[2021-03-30] MEDS: PANTOprazole 40 MG TAB PO SCH (07:58)
[2021-03-30] MEDS: OXYBUTYNIN CHLORIDE XL 5 MG TABCR PO SCH (07:58)
[2021-03-30] MEDS: FLUTICASONE PROPIONATE NA SPR 16 GM BTL SCH (07:59)
[2021-03-30] MEDS: INSULIN ASPART 100 UNITS/ML 3 ML PEN SC SCH ×3 (08:59→17:39)
--- NOTE | 2021-03-30 14:07 | Discharge Summary ---
Date of Service March 30, 2021 Admission HPI Per Admitting Provider This is a 70 yo F with PMhx of chronic A. 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 Since then she has had increased shortness of breath with minimal exertion as well as has been sitting upright in recliner during sleep. She was requiring oxygen here in the ER today however does not routinely wear any O2 at baseline. She was hypoxic with sats at 87% on room air which improved with being placed on 2 L. Negative Covid and negative influenza swabs on admission. Patient is very fatigued and falls asleep easily during our exam. Her daughter, Lily is present at bedside and supports the majority of the history as the patient is primarily Maldivian- speaking, and daughter acts as a blower mechanic for her. They denied translation services during my visit. They have been utilizing [id number] treatments including fluticasone propionate nasal spray, Robitussin cough syrup, Vicks vapor rub, elderberry juice. She has a nebulizer at home which she has been utilizing several times per day. She does not run a humidifier in her bedroom at home. Here in the ER she received a 1 hour-long nebulizer treatment as well as a dose of Decadron IV. CXR is concerning for possible interstitial edema however her lungs are diffusely wheezy. Admission Exam Per Admitting Provider Physical Exam: General: awake, alert, no apparent distress, fatigued, Maldivian- speaking Head: Normocephalic, atraumatic ENT: PERRL, EOMI, no pharyngeal exudate, mucous membranes dry Chest: Diffuse loud coarse wheezing throughout, on 2 LPM NC, no rhonchi Cardiac: Regular rate and rhythm, no murmur, no JVD, normal peripheral pulses, good capillary refill Abdominal: NABS x 4 quadrants, soft, nondistended, nontender to palpation, no rebound or guarding Extremities: Normal inspection, 1+ peripheral edema BLE, chronic venous stasis changes, small right ankle wound healing, calfs nontender to palpation Psych: Normal mood and affect Neuro: AAO x 3, strength intact bilaterally and rated 5/5, no motor deficits, speech is clear, no peripheral sensory deficits Principal Diagnosis Acute exacerbation of asthma Discharge Exam Sitting on a chair with minimal shortness of breath Constitutional well developed, well nourished, + ill appearing and + obese Eyes PERRL, conjunctivae normal, anicteric sclerae ENMT external ear and nose normal, oropharynx normal Neck trachea midline, no thyromegaly Respiratory + respiratory distress (Mild respiratory distress) and + cough Auscultation: + diminished lung sounds and + wheezes Cardiovascular Rate/Rhythm: regular rate and regular rhythm; not tachycardic Heart Sounds: normal S1 and normal S2; no murmur Extremities: + edema (Trace edema bilaterally) Gastrointestinal (Abdomen) Inspection/Auscultation: normal bowel sounds; abdomen not distended Percussion/Palpation: abdomen soft; abdomen nontender Psychiatric A+Ox3, euthymic affect Lymphatic no cervical or axillary lymphadenopathy Discharge Data Allergies Allergy/AdvReac Type Severity Reaction Status Date / Time aspirin Allergy Mild Verified 05/29/19 11:26 Iodinated Contrast Media AdvReac Unknown hive Verified 05/29/19 11:26 Torvastatin Allergy Mild Uncoded 05/29/19 11:26 [id number] Allergy Unknown Uncoded 05/29/19 11:26 Consultations 03/28/21 13:27 ED Decision to Admit Stat Hospital Course (1) Persistent asthma: - Acute on chronic asthma exacerbation likely in the setting of viral illness. - Neg COVID. (completed vaccination series). Neg Flu. - Supportive therapy, Mucinex, duoneb Q4H and Q2H prn, O2 as needed, wean as tolerated - Given 10 mg IV dexamethasone in the ER, albuterol 1 hour-long nebulizer treatment - seems improved but still with diffuse wheeze and belly breathing. - IV solumedrol 40 mg TID, add flovent and atrovent inhalers - Pt daughter agreeable to trial on bipap if no improvement and willing to be intubated if needed. - Pt has previously followed with pulm but not for many years, - previously resided in [facility] and has been living with daughter for ~ 3 years now. - Does not wear O2 at baseline -Clinically better but has been requiring up to 4 L of oxygen to maintain saturation -She has been ambulating in the hallway with minimal excess shortness of breath -She has been feeling much better and does not require any oxygen at rest -She has had to a step O2 saturation test and she will require 2 L of oxygen with ambulation -Discussed with the patient and the daughter and she will be discharged this afternoon (2) Chronic a-fib: -Anticoagulated on Eliquis 5 mg twice daily, rate controlled on diltiazem -Rate is controlled (3) HTN, goal to be determined: -Continue spironolactone, Lasix 40 mg twice daily (4) Hyperlipemia: -Patient does not appear to be on statin therapy (5) GERD (gastroesophageal reflux disease): -Continue omeprazole (6) Chronic venous insufficiency of lower extremity: -PVD, chronic venous stasis changes, right chronic ankle wound, will consult wound nurse to monitor while inpatient -Continue follow-up with wound as outpatient (7) DM II (diabetes mellitus, type II), controlled: -ISS with Accu-Cheks ACHS -Holding linagliptin and Metformin (8) Obesity: -History of such, diet and exercise to be encouraged throughout hospital stay DVT ppx: - teds, scds, Eliquis twice daily CODE: Full code Dispo: From home, likely to remain in the hospital x 1-2 days Total Time Total Time Spent Total Time Spent (In Minutes): 40 minutes Discharge Plan Discharge Items Patient Disposition: Home - Self-Care Reason For Visit: ACUTE HYPOXIC RESPIRATORY FAILURE Discharge Diagnosis: Acute exacerbation of asthma Activity: Resume your previous activity Non-emergency contact: Primary Care Provider Call non-emergency contact if: you have any medication questions and your symptoms worsen Follow-up/Referrals: Antwon Rincon DO [Outside Practitioners] - (Date & Time 04/05/2021 11:20 AM Provider Antwon Rincon DO Department Family [facility] ) Diet: Carb Consistent or DM2 and Heart Healthy Addtl Attending Provider Instructions: Please take precautions to avoid fall Finish the course of your steroid Take oxygen as advised Please keep follow-up appointment with your primary care provider Pending Studies at Discharge: No Stand-Alone Forms: My WILEX, Smoking Cessation Medications and DC Order Prescriptions: New prednisone 20 mg tablet 20 mg PO UD Qty: 18 RF: 0 Continued acetaminophen 325 mg capsule 325 mg PO Q6H PRN (Reason: Pain) RF: 0 albuterol sulfate 2 mg/5 mL syrup 2 mg PO TID RF: 0 diphenhydramine HCl [Benadryl] 25 mg capsule 25 mg PO Q6H PRN (Reason: Itching) RF: 0 Eliquis 5 mg tablet 5 mg PO BID RF: 0 furosemide [Lasix] 40 mg tablet 40 mg PO BID RF: 0 omeprazole 40 mg capsule,delayed release(DR/EC) 40 mg PO DAILY RF: 0 sennosides 8.6 mg tablet 8.6 mg PO DAILY PRN (Reason: Constipation) RF: 0 spironolactone [Aldactone] 25 mg tablet 25 mg PO DAILY RF: 0 trazodone 50 mg tablet 100 mg PO DAILY RF: 0 oxybutynin chloride 10 mg tablet extended release 24hr 10 mg PO DAILY RF: 0 diltiazem HCl 180 mg capsule,extended release 24hr 180 mg PO DAILY RF: 0 fluticasone propionate 50 mcg/actuation spray,suspension 2 spray INTRANASAL DAILY RF: 0 metformin 500 mg tablet extended release 24 hr 500 mg PO DAILY RF: 0 escitalopram oxalate 10 mg tablet 10 mg PO DAILY RF: 0 linagliptin 5 mg Tablet 5 mg PO DAILY RF: 0 Discharge Orders: Discharge Order (Routine); Ordered 03/30/21 Ordered By: Mirna Milan/Other Patient Handouts: High Blood Sugar (Hyperglycemia), Hypoglycemia (Low Blood Sugar), Managing Type 2 Diabetes Admission Data Admit Date/Time: 03/28/21 13:43 Attending Provider: Mirna Villareal Admit Provider: Mirna Villareal Primary Care Provider: PCP,NO Other Providers: Mirna Villareal
[2021-03-31] MEDS ORDERED: predniSONE 20 MG TAB PO SCH (09:00)
== END 2021-03-30 18:34 | disposition home or self-care (01) | DRG 202 ==
LOC: ED 09:41 → 3E 13:43